=== PATIENT | male | born 1995 | race African-American/Black ===

== ENCOUNTER → 2017-12-24 | Emergency (ER) | payer BC ==
--- NOTE | 2017-12-25 00:18 | EMERGENCY ROOM VISIT NOTE ---
History First contact with patient: 23:44 Stated Complaint: BURNED LEG History of Present Illness The patient is a 22 year old male who presents to the Emergency Room with complaints of burn to his left thigh that occurred 3 days ago. Patient states that he was ironing his pants, when he placed the iron down. As he turned, he struck the cord of the iron, causing some of the water to splash onto his left leg. The patient states that he has increased discomfort today, rating his discomfort a 4/10. He has had some sloughing of the skin in this area, but the blisters have popped. He is not taking anything [id number] for his discomfort. He believes he is up-to-date on his tetanus. Please note the patient was seen in part during an episode of [employer] downtime. Additional information may be scanned into the chart regarding this encounter. Review of Systems More than 10 systems were reviewed and otherwise negative with the exception of history of present illness. Past Medical/Surgical History No chronic medical disease Family History No pertinent family history Current/Historical Medications No Active Prescriptions or Reported Meds Physical Exam Physical Exam VITALS: Vitals are noted on the nurse's note and reviewed by myself. Vital signs stable. GENERAL: Well-developed, well-nourished, male, who is in no acute distress and resting comfortably. Patient is cooperative with the examination. HEART: Regular rate and rhythm without murmurs gallops or rubs. LUNGS: Clear to auscultation bilaterally without wheezes, rales or rhonchi. No retractions or accessory muscle use. SKIN: The skin was with a healing burn roughly 9 x 7 cm in dimension along the medial aspect of the left proximal thigh. The wound appears to be second- degree without eschar. There is mild cellulitis surrounding the burn extending another 6-8 cm. No drainage or discharge. No lymphangitic streaking. Medical Decision & Procedures ED Course Physical exam and history were performed. Nursing notes, EMR, and Medication List were personally reviewed. Patient appears to have a burn to his left leg that occurred several days ago. The wound itself appears to be healing fairly well, however there is surrounding erythema consistent with cellulitis. The patient does not appear toxic and is otherwise healthy. He will be started on Keflex. The patient's wound was dressed with a bacitracin dressing. He will need to follow with his primary care physician or back in the ER in 2-3 days for recheck. He was otherwise invited back to the ER with any new, worsening, or concerning symptoms. The chart was completed utilizing [employer] Speech Voice Recognition Software. Grammatical errors, random word insertions, pronoun errors, and incomplete sentences are an occasional consequence of this system due to software limitations, ambient noise, and hardware issues. Any formal questions or concerns about the content, text, or information contained within the body of this dictation should be directly addressed to the provider for clarification. . Medical Decision Differential diagnosis: Etiologies such as cellulitis, abscess, MRSA infection, DVT, necrotizing fasciitis, dermatitis, drug eruption, as well as others were entertained.. Impression Primary Impression: Burn of leg, left, second degree Additional Impression: Cellulitis Departure Information Prescriptions No Active Prescriptions or Reported Meds Referrals No Doctor, Assigned (PCP) Problem Qualifiers
== END | disposition home or self-care (01) ==
LOC: C.ED 18:15
DX: T24.212A Burn of second degree of left thigh, initial encounter (principal); X11.8XXA Contact with other hot tap-water, initial encounter; L03.116 Cellulitis of left lower limb